=== PATIENT | male | born 1985 ===

== ENCOUNTER 2018-06-30 15:18 | Emergency (ER) | payer SELFPAY ==
[2018-06-30 15:23] VITALS: BP 148/94; PULSE 78; RESP 18; TEMP 98.2; O2SAT 99
--- NOTE | 2018-06-30 15:51 | ED PDOC ---
HPI: General Adult Time Seen by Provider: 06/30/18 15:47 Chief Complaint (Nursing): Medical Clearance Chief Complaint (Provider): clearance History Per: Patient Additional Complaint(s): 32-year-old male currently under arrest presents for medical and psychiatric clearance. Patient complains of headache secondary to hitting his head against a wall last night while in [facility]. He did not sustain LOC. Nurse at [facility] is now requesting medical clearance for head injury. Patient offers no other complaints besides headache at this time. He denies suicidal or homicidal ideation. PMD: none Past Medical History Reviewed: Historical Data, Nursing Documentation, Vital Signs Vital Signs: Last Vital Signs Temp 98.2 F 06/30/18 15:21 Pulse 78 06/30/18 15:21 Resp 18 06/30/18 15:21 BP 148/94 H 06/30/18 15:21 Pulse Ox 99 06/30/18 15:21 - Medical History PMH: No Chronic Diseases - Surgical History Surgical History: No Surg Hx - Family History Family History: States: No Known Family Hx - Living Arrangements Living Arrangements: With Family - Social History Current smoker - smoking cessation education provided: No Alcohol: None Drugs: Denies - Home Medications Home Medications: Ambulatory Orders Medication Instructions Recorded DiphenhydrAMINE [Benadryl] 25 mg PO Q6H PRN #15 cap 04/16/15 Triamcinolone 0.1% [Triamcinolone 1 apful TP BID #1 tube 04/16/15 0.1% Cream] - Allergies Allergies/Adverse Reactions: Allergies Allergy/AdvReac Type Severity Reaction Status Date / Time No Known Allergies Allergy Unverified 04/16/15 19:37 Review of Systems ROS Statement: Except As Marked, All Systems Reviewed And Found Negative Neurological: Positive for: Headache (head injury with no LOC) Psych: Positive for: Other (denies suicidal or homicidal ideation) Physical Exam - Reviewed Nursing Documentation Reviewed: Yes Vital Signs Reviewed: Yes - Physical Exam Appears: Positive for: Well, Non-toxic, No Acute Distress Skin: Positive for: Normal Color. Negative for: Rash Eye Exam: Positive for: Normal appearance, EOMI, PERRL Neck: Positive for: Normal Cardiovascular/Chest: Positive for: Regular Rate, Rhythm Respiratory: Positive for: Normal Breath Sounds Extremity: Positive for: Normal ROM Neurologic/Psych: Positive for: Alert, vice president of business development II-XII (grossly intact), Oriented, Gait (steady). Negative for: Aphasia, Facial Droop - ECG O2 Sat by Pulse Oximetry: 99 Pulse Ox Interpretation: Normal - Other Rad CT head X-Ray: Read By Radiologist X-Ray Interpretation: no acute finding Medical Decision Making Medical Decision Makin32 y/o male with head injury Patient is currently under arrest, police officers are at bedside. Plan: PO tylenol CT head Crisis eval As per crisis counselor and psychiatrist office automation technician Dr. Quintanilla, patient does not meet criteria for psychiatric admission and is stable for discharge. Patient is medically and psychiatrically stable for incarceration. Disposition - Clinical Impression Clinical Impression: Head injury, Adjustment disorder - Patient ED Disposition Is Patient to be Admitted: No Counseled Patient/Family Regarding: Need For Followup - Disposition Referrals: [facility] [Outside] Disposition Time: 17:56 Condition: FAIR Additional Instructions: Patient is medically and psychiatrically stable for incarceration. Instructions: General (DC), Minor Head Injury (DC) Forms: [employer] (Romansh)
--- NOTE | 2018-06-30 17:14 | CT ---
Date of service: 06/30/2018 PROCEDURE: CT HEAD WITHOUT CONTRAST. HISTORY: trauma COMPARISON: None available. TECHNIQUE: Axial computed tomography images were obtained through the head/brain without intravenous contrast. Supplemental Coronal and Sagittal projections created and reviewed. Radiation dose: Total exam DLP = 921.05 mGy-cm. This CT exam was performed using one or more of the following dose reduction techniques: Automated exposure control, adjustment of the mA and/or kV according to patient size, and/or use of iterative reconstruction technique. FINDINGS: HEMORRHAGE: No intracranial hemorrhage. BRAIN: No mass effect or edema. No atrophy or chronic microvascular ischemic changes. VENTRICLES: Unremarkable. No hydrocephalus. CALVARIUM: Unremarkable. PARANASAL SINUSES: Unremarkable as visualized. No significant inflammatory changes. MASTOID AIR CELLS: Unremarkable as visualized. No inflammatory changes. OTHER FINDINGS: None. IMPRESSION: No acute intracranial abnormalities. No significant findings to account for the clinical presentation.
== END 2018-06-30 18:04 ==
LOC: H.ER 15:18
DX: S09.90XA Unspecified injury of head, initial encounter (principal); Y04.0XXA Assault by unarmed brawl or fight, initial encounter; Y92.89 Other specified places as the place of occurrence of the external cause; F43.20 Adjustment disorder, unspecified